=== PATIENT | male | born 1940 | race Two or more races ===

== ENCOUNTER 2020-08-12 08:31 | Inpatient (IN) | payer MEDICARE, BC ==
[2020-08-12] VITALS (15 sets, daily range): BP systolic 112–155; BP diastolic 55–84
[~2020-08-12] VITALS: Ht 165.1 cm; Wt 83.9 kg
[~2020-08-12 08:31] MED LIST: ASPIRIN81 MG ORAL; ATENOLOL50 MG ORAL; FLOMAX0.4 MG ORAL; LISINOPRIL10 MG ORAL; SIMVASTATIN20 MG ORAL
[2020-08-12] MEDS ORDERED: ceFAZolin sod 1 GM in NS 55 ML IVPB ONE (09:00)
--- NOTE | 2020-08-12 10:53 | Anethesia Preoperative Eval ---
Anesthesia Pre-op PMH/ROS General Date of Evaluation: Aug 12, 2020 Time of Evaluation: 11:35 Anesthesiologist: Jeff ASA Score: ASA 3 Mallampati Score Class I : Soft palate, uvula, fauces, pillars visible Class II: Soft palate, uvula, fauces visible Class III: Soft palate, base of uvula visible Class IV: Only hard plate visible Mallampati Classification: Class III Surgeon: Killian Diagnosis: Bladder Tumor Surgical Procedure: TURBT, TURP Anesthesia History: none Family History: no anesthesia problems Allergies: Coded Allergies: No Known Allergies (Unverified , 08/11/20) Medications: see eMAR Patient NPO?: Yes Past Medical History Cardiovascular: Reports: HTN, other - HL Gastrointestinal/Genitourinary: Reports: other - Ptostate CA, Bladder Tumor Neurologic/Psychiatric: Reports: depression/anxiety Musculoskeletal/Integumentary: Reports: other - Gout Anesthesia Pre-op Phys. Exam Physician Exam Last Vital Signs Date Time Temp Pulse Resp B/P (MAP) Pulse Ox O2 Delivery O2 Flow Rate FiO2 08/12/20 10:09 Room Air 08/12/20 10:04 97.9 80 18 123/84 (97) 99 Constitutional: NAD Neurologic: CN 2-12 intact Cardiovascular: RRR Respiratory: CTA Gastrointestinal: S/NT/ND Airway Exam Mallampati Score: Class III MO: limited ROM: limited Teeth: missing Anesthesia Pre-op A/P Risk Assessment & Plan Assessment: ASA 3 Plan: GA, SED, GlideScope Status Change Before Surgery: No Pre-Antibiotics Dru Gram Ancef IV Given Within 1 Hr of Incision: Yes Time Given: 11:51 Kei Aguilar MD Aug 12, 2020 10:53
--- NOTE | 2020-08-12 10:53 | Immediate Post-Op Evaluation ---
Immediate Post-Op Evalulation Immediate Post-Op Evalulation Procedure: TURBT, TURP Date of Evaluation: Aug 12, 2020 Time of Evaluation: 13:32 IV Fluids: 1500 LR Blood Products: 0 Estimated Blood Loss: 25 Urinary Output: 0 Blood Pressure Systolic: 162 Blood Pressure Diastolic: 87 Pulse Rate: 86 Respiratory Rate: 16 O2 Sat by Pulse Oximetry: 98 Temperature (Fahrenheit): 98.5 Pain Score (1-10): 2 Nausea: No Vomiting: No Complications 0 Patient Status: awake, reacts, patent, extubated, none Hydration Status: adequate Dru Gram Ancef IV Given Within 1 Hr of Incision: Yes Time Given: 11:51 Kei Aguilar MD Aug 12, 2020 10:53
[2020-08-12] MEDS ORDERED: LR 1000ml 1,000 ML IVLG SCH (11:00)
[2020-08-12] MEDS ORDERED: Hydromorphone 0.5mg/0.5ml inj IVP PRN (11:00)
[2020-08-12] MEDS ORDERED: LORazepam Inj 2mg/ml 1ml IV PRN (11:00)
[2020-08-12] MEDS ORDERED: oxyCODONE HCL/Acetaminophen 5/325mg ORAL PRN (11:00)
[2020-08-12] MEDS ORDERED: HYDROcodone/Acetamin 7.5/325 tab ORAL PRN (11:00)
[2020-08-12] MEDS ORDERED: HYDROcodone/Acetamin 5/325 tab ORAL PRN ×4 (11:00→13:15)
[2020-08-12] MEDS ORDERED: Acetaminophen (Non formulary) 100 ML IV ONE (11:00)
[2020-08-12] MEDS ORDERED: Midazolam 2mg/2ml Inj IVP PRN (11:00)
[2020-08-12] MEDS ORDERED: Metoclopramide 10mg/2ml Inj IVP PRN (11:00)
[2020-08-12] MEDS ORDERED: Ketorolac 30mg Inj IV PRN ×2 (11:00)
[2020-08-12] MEDS ORDERED: fentaNYL 100 mcg/2 mL IV PRN (11:00)
[2020-08-12] MEDS ORDERED: DiphenhydrAMINE 50mg/ml Inj IVP PRN (11:00)
[2020-08-12] MEDS ORDERED: Labetalol 5mg/ml 20ml vial IV PRN (11:00)
[2020-08-12] MEDS ORDERED: Meperidine 25mg/1ml Inj (FOR RIGORS ONLY) IV PRN (11:00)
[2020-08-12] MEDS ORDERED: Atropine Sulfate 0.4mg/ml inj IVP PRN (11:00)
--- NOTE | 2020-08-12 11:01 | 48 Hour Post Anesthesia Eval ---
Post Anesthesia Evaluation Procedure: TURBT, TURP Date of Evaluation: Aug 12, 2020 Time of Evaluation: 15:43 Blood Pressure Systolic: 156 0: 79 Pulse Rate: 82 Respiratory Rate: 18 Temperature (Fahrenheit): 98.6 O2 Sat by Pulse Oximetry: 99 Airway: patent Nausea: No Vomiting: No Pain Intensity: 2 Hydration Status: adequate Cardiopulmonary Status: Stable Mental Status/LOC: patient returned to baseline Follow-up Care/Observations: 0 Post-Anesthesia Complications: 0 Follow-up care needed: ready to discharge Kei Aguilar MD Aug 12, 2020 11:01
[2020-08-12] MEDS ORDERED: Iothalamate Meglumine 60% 50ML INJ ONE (11:27)
[2020-08-12] MEDS ORDERED: Lidocaine 1% MPF 10mg/ml 5ml ONE (11:30)
[2020-08-12] MEDS ORDERED: Glycopyrrolate 0.2mg/ml 1ml Vial ONE (11:30)
[2020-08-12] MEDS ORDERED: Neostigmine 1mg/ml 10ml Inj ONE (11:30)
[2020-08-12] MEDS ORDERED: fentaNYL 100 mcg/2 mL IV ONE (11:30)
[2020-08-12] MEDS ORDERED: LR 1000ml ONE (11:30)
[2020-08-12] MEDS ORDERED: Midazolam 2mg/2ml Inj ONE (11:30)
[2020-08-12] MEDS ORDERED: Sterile Water Irrig 1000ml IRRIG ONE (11:30)
[2020-08-12] MEDS ORDERED: Rocuronium Bromide 50mg/5ml Inj IV ONE (11:30)
[2020-08-12] MEDS ORDERED: NS Irrig 3000ml IRRIG ONE ×6 (12:08→12:58)
--- NOTE | 2020-08-12 13:12 | Pre-Procedure Note/Attestation ---
Pre-Procedure Note/Attestation Complete Prior to Procedure Planned Procedure: not applicable Procedure Narrative: DVIU TURP SP tube placement Indications for Procedure Pre-Operative Diagnosis: urethral stricture CAP Attestation I attest that I discussed the nature of the procedure; its benefits; risks and complications; and alternatives (and the risks and benefits of such alternatives), prior to the procedure, with the patient (or the patient's legal desk representative). I attest that, if there was a reasonable possibility of needing a blood transfusion, the patient (or the patient's legal desk representative) was given the [facility] standardized written summary, pursuant to the [place] Blood Safety Act ([place] Health and Safety Code # 1645, as amended). I attest that I re-evaluated the patient just prior to the surgery and that there has been no change in the patient's H&P, except as documented below: Anival Daily MD Aug 12, 2020 13:12
--- NOTE | 2020-08-12 13:13 | Brief Operative Note ---
Immediate Post Operative Note Operative Note Pre-op Diagnosis: urethral stricture CAP Procedure: DVIU TURP SP Post-op Diagnosis: same Post-op Diagnosis: same as pre-op Surgeon: Adriel Daily Anesthesia: general Specimen: yes Complications: none Condition: stable Fluids: 500 Estimated Blood Loss: minimal Implant(s) used?: No Anival Daily MD Aug 12, 2020 13:13
[2020-08-12] MEDS ORDERED: D5 1/2NS 1,000 ML IV SCH ×2 (13:15)
[2020-08-12] MEDS ORDERED: Tylenol #3 tab (300mg/30mg) ORAL PRN ×3 (13:15)
[2020-08-12] MEDS ORDERED: HYDROmorphone 1mg/ml Carpuject SUBQ PRN ×3 (13:15)
--- NOTE | 2020-08-12 15:00 | NUR ---
NURSE NOTES: Handoff received from Anabel CAMACHO. Patient is awake and alert, no signs of acute distress noted, breathing is even and unlabored on 3L NC. Fuentes catheter is patent and draining to gravity, Right hand 20 g is intact and running TKO. Bed is low and locked, side rails up x2, call light is within reach.
[2020-08-12] MEDS: D5 1/2NS 1,000 ML IV SCH (16:09)
--- NOTE | 2020-08-12 19:30 | NUR ---
NURSE HAND-OFF: Important Events on Shift:[arrival to 3E] Patient Status: stable Diet: regular Pending Orders: Pending Results/Labs: Pending MD notification: Latest Vital Signs: Temperature 97.9 , Pulse 64 , B/P 147 /68 , Respiratory Rate 18 , O2 SAT 99 , Nasal Cannula, O2 Flow Rate 3 . Vital Sign Comment: stable Latest Mohan Fall Score: 35 Fall Risk: Medium Risk Safety Measures: Call light , Bed Alarm , Side Rails Side Rails x1, Bed position Low and Locked. Fall Precautions: Report given to Skyler CAMACHO.
--- NOTE | 2020-08-12 19:30 | NUR ---
NURSE NOTES: received pt and report from Gilberto RN, pt alert and oriented x 4 with no acute s/s of distress and no co pain at the moment. farrar noted and draining. IV site clean dry and intact. ice pack placed on surgical site as ordered. plan of care discussed.
--- NOTE | 2020-08-12 20:30 | NUR ---
NURSE NOTES: vital signs stable, no acute distress noted, no pain. pt asleep at the moment.
[2020-08-13] VITALS: BP 121/59
--- NOTE | 2020-08-13 00:22 | NUR ---
NURSE NOTES: vital signs stable, pt watching tv in bed. new ice pack applied to groin area as ordered. no acute distress and no co pain.
[2020-08-13] MEDS: D5 1/2NS 1,000 ML IV SCH ×3 (02:06→23:33)
[2020-08-13 03:46] VITALS: BP 130/56
--- NOTE | 2020-08-13 03:57 | NUR ---
NURSE NOTES: pt lying in bed watching tv. no acute distress noted and no co of pain at the moment. vital signs are stable. new ice pack applied to perineal area.
[2020-08-13 06:54] LABS: HEMATOCRIT 44.5 % (42.0-52.0); HEMOGLOBIN 14.5 G/DL (14.2-18.0); MEAN CORPUSCULAR VOLUME 94 FL (80-99); PLATELET COUNT 183 K/UL (150-450); RED BLOOD COUNT 4.73 M/UL (4.70-6.10); RED CELL DISTRIBUTION WIDTH 13.3 % (11.6-14.8); WHITE BLOOD COUNT 12.4 K/UL (4.8-10.8)
[2020-08-13 06:59] LABS: ALBUMIN 3.1 G/DL (3.4-5.0); ALBUMIN/GLOBULIN RATIO 0.9 (1.0-2.7); BILIRUBIN,TOTAL 0.5 MG/DL (0.2-1.0); CREATININE 1.3 MG/DL (0.55-1.30)
--- NOTE | 2020-08-13 07:30 | NUR ---
NURSE NOTES: Received report from Skyler CAMACHO. Patient is awake and oriented, in no distress, denies pain. SCD's in place. IV intact, patent, running IVF per order. F/c draining to gravity with clear, yellow urine noted, small amount of blood noted around urethra, blood cleaned and farrar care provided. Patient updated on plan of care. Side rails upx2, bed low and locked, call light within reach.
--- NOTE | 2020-08-13 07:31 | NUR ---
NURSE HAND-OFF: Important Events on Shift:Pain management, post op assessments Patient Status: stable Diet: regular Pending Orders: NA Pending Results/Labs:NA Pending MD notification:NA Latest Vital Signs: Temperature 97.7 , Pulse 60 , B/P 130 /56 , Respiratory Rate 16 , O2 SAT 97 , Nasal Cannula, O2 Flow Rate 3 . Vital Sign Comment: stable through the shift Latest Mohan Fall Score: 35 Fall Risk: Medium Risk Safety Measures: Call light Within Reach, Bed Alarm , Side Rails Side Rails x2, Bed position Low and Locked. Fall Precautions: Patient Fall Education Report given to JANICE Ryan.
[2020-08-13 08:00] VITALS: BP 116/57
[2020-08-13] MEDS ORDERED: Aspirin Baby 81mg ORAL SCH (09:00)
[2020-08-13] MEDS: Tamsulosin 0.4mg cap ORAL SCH (09:10)
[2020-08-13] MEDS: Lisinopril 20mg tab ORAL SCH (09:11)
[2020-08-13 12:00] VITALS: BP 132/49
--- NOTE | 2020-08-13 12:40 | NUR ---
NURSE NOTES: Patient complained of difficulty having BM. Notified Dr. Akbar, orders received and entered.
[2020-08-13] MEDS ORDERED: Milk of Magnesia 30ml Ud ORAL PRN (12:45)
--- NOTE | 2020-08-13 12:56 | Consultation ---
History of Present Illness General Date patient seen: Aug 13, 2020 Present Illness HPI 79-year-old Farsi speaking male status post TURP surgery called to evaluate and assist with postoperative management patient has his age comorbidities and condition will dictate. Patient seen patient by chart reviewed complaining abdominal discomfort constipation. Allergies: Coded Allergies: No Known Allergies (Unverified , 08/11/20) COVID-19 Screening Contact w/high risk pt: No Experienced COVID-19 symptoms?: No Medication History Scheduled Atenolol* (Tenormin*), 50 MG ORAL DAILY, (Reported) Lisinopril* (Lisinopril*), 20 MG ORAL DAILY, (Reported) Simvastatin (Zocor), 20 MG ORAL BEDTIME, (Reported) Tamsulosin HCl (Flomax), 0.4 MG ORAL DAILY, (Reported) Discontinued Medications Aspirin* (Aspirin*), 81 MG ORAL DAILY, (Reported) Discontinued Reason: MD discontinued med Patient History History Provided By: Patient, Medical Record, PMD Healthcare decision maker N Resuscitation status Advanced Directive on File Past Medical/Surgical History Past Medical/Surgical History: (1) TRANSURETRHAL RESECTION OF BLADDER TUMOR Review of Systems Review of Symptoms General ROS: no weight loss or fever Psychological ROS: no depression or mood changes, no memory loss Ophthalmic ROS: no visual changes or eye irritation ENT ROS: no nasal congestion, hearing loss, dizziness Allergy and Immunology ROS: no allergic symptoms or urticaria Hematological and Lymphatic ROS: no swollen glands, unusual bleeding or bruising Endocrine ROS: no polyuria, polydipsia, weight changes, temperature intolerance Respiratory ROS: no cough, shortness of breath, or wheezing Cardiovascular ROS: no chest pain or dyspnea on exertion Gastrointestinal ROS: denies abdominal pain, bright red blood in stool. Musculoskeletal ROS: no myalgias or arthralgias Neurological ROS: no TIA or stroke symptoms Dermatological ROS: no new or changing skin lesions, rashes or pruritis Physical Exam Physical Exam General appearance: alert, cooperative, no distress, appears stated age Head: Normocephalic, without obvious abnormality, atraumatic Eyes: conjunctivae/corneas clear. PERRL, EOM's intact. Fundi benign Throat: Lips, mucosa, and tongue normal. Teeth and gums normal Neck: supple, symmetrical, trachea midline, no adenopathy, thyroid: not enlarged, symmetric, no tenderness/mass/nodules, no carotid bruit and no JVD Lungs: clear to auscultation bilaterally Heart: regular rate and rhythm, S1, S2 normal, no murmur, click, rub or gallop Abdomen: soft, non-tender. Bowel sounds normal. No masses, no organomegaly Extremities: extremities normal, atraumatic, no cyanosis or edema Pulses: 2+ and symmetric Skin: Skin color, texture, turgor normal. No rashes or lesions Neurologic: Grossly normal Last 24 Hour Vital Signs Date Time Temp Pulse Resp B/P (MAP) Pulse Ox O2 Delivery O2 Flow Rate FiO2 08/13/20 09:11 116/57 08/13/20 09:11 82 116/57 08/13/20 03:46 97.7 60 16 130/56 (80) 97 08/13/20 00:00 97.8 61 15 121/59 (79) 97 08/12/20 21:00 Room Air 08/12/20 20:00 97.4 71 16 112/55 (74) 98 08/12/20 16:00 97.9 64 18 147/68 (94) 99 08/12/20 15:30 98.2 77 18 146/61 (89) 100 08/12/20 15:00 98.1 71 18 140/57 (84) 100 08/12/20 14:50 98.0 60 23 147/68 99 Nasal Cannula 3 08/12/20 14:45 62 15 140/64 100 Nasal Cannula 3 08/12/20 14:30 65 14 138/68 99 Nasal Cannula 3 08/12/20 14:19 68 15 138/66 100 08/12/20 14:15 69 16 133/61 99 Nasal Cannula 3 08/12/20 14:00 62 19 131/63 99 Nasal Cannula 3 08/12/20 13:49 65 19 147/68 99 08/12/20 13:45 64 11 140/61 99 Nasal Cannula 3 08/12/20 13:35 74 22 136/65 99 Nasal Cannula 3 08/12/20 13:25 77 15 138/66 98 Simple Mask 6 08/12/20 13:20 78 18 155/74 98 Simple Mask 6 08/12/20 13:17 82 18 99 08/12/20 13:16 86 16 98 08/12/20 13:15 98.5 91 13 153/79 97 Simple Mask 6 Intake and Output 08/12/20 08/13/20 19:00 07:00 Intake Total 2300 ml 1250 ml Output Total 775 ml 550 ml Balance 1525 ml 700 ml Intake Oral 300 ml 250 ml IV Total 2000 ml 1000 ml Output Urine Total 750 ml 550 ml Estimated Blood Loss 25 ml # Voids 1 Laboratory Tests Test 08/13/20 06:00 White Blood Count 12.4 K/UL (4.8-10.8) H Red Blood Count 4.73 M/UL (4.70-6.10) Hemoglobin 14.5 G/DL (14.2-18.0) Hematocrit 44.5 % (42.0-52.0) Mean Corpuscular Volume 94 FL (80-99) Mean Corpuscular Hemoglobin 30.5 PG (27.0-31.0) Mean Corpuscular Hemoglobin Concent 32.5 G/DL (32.0-36.0) Red Cell Distribution Width 13.3 % (11.6-14.8) Platelet Count 183 K/UL (150-450) Mean Platelet Volume 8.4 FL (6.5-10.1) Neutrophils (%) (Auto) % (45.0-75.0) Lymphocytes (%) (Auto) % (20.0-45.0) Monocytes (%) (Auto) % (1.0-10.0) Eosinophils (%) (Auto) % (0.0-3.0) Basophils (%) (Auto) % (0.0-2.0) Differential Total Cells Counted 100 Neutrophils % (Manual) 82 % (45-75) H Lymphocytes % (Manual) 8 % (20-45) L Monocytes % (Manual) 10 % (1-10) Eosinophils % (Manual) 0 % (0-3) Basophils % (Manual) 0 % (0-2) Band Neutrophils 0 % (0-8) Platelet Estimate Adequate Platelet Morphology Normal Red Blood Cell Morphology Normal Sodium Level 139 MMOL/L (136-145) Potassium Level 5.0 MMOL/L (3.5-5.1) Chloride Level 107 MMOL/L (98-107) Carbon Dioxide Level 24 MMOL/L (21-32) Anion Gap 8 mmol/L (5-15) Blood Urea Nitrogen 19 mg/dL (7-18) H Creatinine 1.3 MG/DL (0.55-1.30) Estimat Glomerular Filtration Rate 53.1 mL/min (>60) Glucose Level 131 MG/DL (74-106) H Calcium Level 9.0 MG/DL (8.5-10.1) Total Bilirubin 0.5 MG/DL (0.2-1.0) Aspartate Amino Transf (AST/SGOT) 21 U/L (15-37) Alanine Aminotransferase (ALT/SGPT) 19 U/L (12-78) Alkaline Phosphatase 58 U/L (46-116) Total Protein 6.6 G/DL (6.4-8.2) Albumin 3.1 G/DL (3.4-5.0) L Globulin 3.5 g/dL Albumin/Globulin Ratio 0.9 (1.0-2.7) L Height (Feet): 5 Height (Inches): 5.00 Weight (Pounds): 185 Medications Current Medications Medications (Trade) Dose Ordered Sig/Hiwot Route PRN Reason Start Time Stop Time Status Last Admin Dose Admin Acetaminophen/ Codeine Phosphate (Tylenol #3) 1 tab Q4H PRN ORAL Moderate Pain (Pain Scale 4-6) 08/12/20 13:15 08/19/20 13:14 Acetaminophen/ Hydrocodone Bitart ([place] 5/325) 1 tab Q4H PRN ORAL Moderate Pain (Pain Scale 4-6) 08/12/20 13:15 08/19/20 13:14 Atenolol (Tenormin) 50 mg DAILY ORAL 08/13/20 09:00 09/12/20 08:59 08/13/20 09:11 Atorvastatin Calcium (Lipitor) 10 mg BEDTIME ORAL 08/12/20 21:00 11/10/20 20:59 08/12/20 20:15 Dextrose/Sodium Chloride 1,000 ml @ 100 mls/hr Q10H IV 08/12/20 18:00 09/11/20 17:59 08/13/20 02:06 Docusate Sodium (Colace) 100 mg TWICE A DAY ORAL 08/13/20 18:00 09/12/20 17:59 Hydromorphone HCl (Dilaudid) 1 mg Q1H PRN SUBQ Severe Pain (Pain Scale 7-10) 08/12/20 13:15 08/19/20 13:14 08/12/20 21:18 Lisinopril (PriniviL) 20 mg DAILY ORAL 08/13/20 09:00 09/12/20 08:59 08/13/20 09:11 Magnesium Hydroxide (Mom) 30 ml DAILYPRN PRN ORAL Constipation 08/13/20 12:45 09/12/20 12:44 Tamsulosin HCl (Flomax) 0.4 mg DAILY ORAL 08/13/20 09:00 09/12/20 08:59 08/13/20 09:10 Assessment/Plan Problem List: (1) TRANSURETRHAL RESECTION OF BLADDER TUMOR Assessment & Plan: Patient is doing well overall postoperatively. The urine is clearing up very well. He is complaining of abdominal discomfort with little distention likely related to constipation. Plan for diet as tolerated. Bowel regimen initiated. Rx written for potential plan for DC tomorrow. Needs to work with physical therapy to ensure safe for discharge given age and condition. Glasses checked teeth checked oral airway checked incentive spirometry initiated. Skin protection identified discussion had with patient in [facility] regards to this care plan patient expressed understanding. Toro Akbar Aug 13, 2020 12:56
--- NOTE | 2020-08-13 13:34 | NUR ---
P.T Note: P.T evaluation completed. Pt is independent in all areas of ADL/self functional mobilities and gait/ambulation. Current functional status does not warrant skilled P.T service at this time. Encouraged patient OOB activities i.e ambulation within the room and hallways with nursing supervision and to assist with I.V pole .DC P.T services. Thank you for this referral. Addendum: 08/13/20 at 1335 by JAZMIN DURAN PT Amended: Links added.
--- NOTE | 2020-08-13 15:31 | NUR ---
CASE MANAGEMENT:REVIEW 79 YR OLD MALE HERE FOR ELECTIVE SURGERY SI: URETHRAL STRICTURE CAP 97.9 80 18 123/84 99% ON RA IS: TO SURGERY FOR DVIU TURP SP : TO MED/SURG 3 EAST POST OP 08/13/20 SI: POD #1.....S/P TURP 97.4 71 16 112/55 98% ON RA IS: IVF@100/HR FLOMAX PO QD LISINOPRIL PO QD ATENOLOL PO QD LIPITOR PO QHS : MED/SURG STATUS 3 EAST PLAN: START REGULAR DIET PT EVAL
[2020-08-13 16:00] VITALS: BP 138/57
[2020-08-13] MEDS: Docusate 100mg cap ORAL SCH (17:38)
--- NOTE | 2020-08-13 19:05 | NUR ---
NURSE NOTES: Received report from JANICE Ryan. Patient is A&Ox4, call light within reach, bed in lowest position, side rails up x2. Pt is able to ambulate, IVF infusing well. Will continue to monitor.
--- NOTE | 2020-08-13 19:14 | NUR ---
NURSE HAND-OFF: Important Events on Shift: Ambulated, f/f care, patient requested MOM tonjunior (endorsed to shift stacker). Patient Status: stable Diet: Reg(kosher) Pending Orders: n/a Pending Results/Labs: n/a Pending MD notification: n/a Latest Vital Signs: Temperature 97.3 , Pulse 62 , B/P 138 /57 , Respiratory Rate 18 , O2 SAT 97 Vital Sign Comment: VS stable Latest Mohan Fall Score: 35 Fall Risk: Medium Risk Safety Measures: Call light Within Reach, Bed Alarm , Side Rails Side Rails x2, Bed position Low and Locked. Fall Precautions: Patient Fall Education Report given to Vinay CAMACHO.
[2020-08-13 20:00] VITALS: BP 138/58
[2020-08-14] VITALS: BP 130/53
[2020-08-14 04:00] VITALS: BP 149/63
[2020-08-14 06:39] LABS: BASOPHILS % (AUTO) 0.7 % (0.0-2.0); EOSINOPHILS % (AUTO) 3.6 % (0.0-3.0); HEMATOCRIT 42.2 % (42.0-52.0); HEMOGLOBIN 13.6 G/DL (14.2-18.0); LYMPHOCYTES % (AUTO) 16.1 % (20.0-45.0); MEAN CORPUSCULAR VOLUME 93 FL (80-99); MONOCYTES % (AUTO) 8.2 % (1.0-10.0); NEUTROPHILS % (AUTO) 71.4 % (45.0-75.0); PLATELET COUNT 173 K/UL (150-450); RED BLOOD COUNT 4.53 M/UL (4.70-6.10); RED CELL DISTRIBUTION WIDTH 13.1 % (11.6-14.8); WHITE BLOOD COUNT 9.4 K/UL (4.8-10.8)
[2020-08-14 06:59] LABS: ALANINE AMINOTRANSFERASE 19 U/L (12-78); ALBUMIN 2.9 G/DL (3.4-5.0); ALBUMIN/GLOBULIN RATIO 0.9 (1.0-2.7); ALKALINE PHOSPHATASE 58 U/L (46-116); ANION GAP 7 mmol/L (5-15); ASPARTATE AMINO TRANSFERASE 21 U/L (15-37); BILIRUBIN,TOTAL 0.6 MG/DL (0.2-1.0); BLOOD UREA NITROGEN 16 mg/dL (7-18); CALCIUM 8.8 MG/DL (8.5-10.1); CARBON DIOXIDE 25 MMOL/L (21-32); CHLORIDE 107 MMOL/L (98-107); CREATININE 1.1 MG/DL (0.55-1.30); POTASSIUM 4.1 MMOL/L (3.5-5.1); SODIUM 138 MMOL/L (136-145)
--- NOTE | 2020-08-14 07:10 | NUR ---
NURSE HAND-OFF: Important Events on Shift: Pt attempted to have a BM 1x with no success, no pain, new IV in left FA Patient Status: calm Diet: regular Pending Orders: Pending Results/Labs: Pending MD notification: Latest Vital Signs: Temperature 97.7 , Pulse 76 , B/P 149 /63 , Respiratory Rate 18 , O2 SAT 98 , Nasal Cannula, O2 Flow Rate 3 . Vital Sign Comment: VSS Latest Mohan Fall Score: 35 Fall Risk: Medium Risk Safety Measures: Call light Within Reach, Bed Alarm , Side Rails Side Rails x2, Bed position Low and Locked. Fall Precautions: Yellow Socks Door Sign Patient Fall Education Report given to JANICE Booker.
[2020-08-14 08:00] VITALS: BP 129/57
[2020-08-14] MEDS: Docusate 100mg cap ORAL SCH (09:03)
[2020-08-14] MEDS: Lisinopril 20mg tab ORAL SCH (09:03)
[2020-08-14] MEDS: Tamsulosin 0.4mg cap ORAL SCH (09:04)
--- NOTE | 2020-08-14 09:59 | NUR ---
NURSE NOTES: RECIEVED IN BED ALERT AND ORIENTED NO S/S OF DISTRESS NOTED .CALL LIGHT WITHIN REACH NEEDS ATTENDED.WILL CONTINUE W/ PLAN OF CARE.
[2020-08-14] MEDS: D5 1/2NS 1,000 ML IV SCH (11:31)
[2020-08-14 12:30] VITALS: BP 136/52
--- NOTE | 2020-08-14 12:30 | NUR ---
NURSE NOTES: Received report from Joyce RN. Patient is awake and oriented, in no distress, ambulating steadily with cane, f/c draining to gravity. Updated on plan of care.
--- NOTE | 2020-08-14 12:30 | NUR ---
HAND-OFF: Report given to JOSE CAMACHO.
[2020-08-14 13:04] VITALS: BP 136/52
--- NOTE | 2020-08-14 13:11 | NUR ---
CASE MANAGEMENT:REVIEW SI;URETHRAL STRICTURE ~ POD #2 TURP 98.0 76 18 149/63 97% ON RA ALB- 2.9 IS;FLOMAX PO QD ATENOLOL PO QD IVF D5NS @ 100 ML/HR LISINOPRIL PO QD MED SURG STATUS DCP;FROM HOME
[2020-08-14] MEDS ORDERED: Milk of Magnesia 30ml Ud ORAL SCH (16:00)
[2020-08-14] MEDS ORDERED: D5 1/2NS 1000ml IV ONE (16:14)
--- NOTE | 2020-08-14 16:14 | NUR ---
NURSE NOTES: Patient discharged without distress, patient provided with discharge education, seen by Dr. Layton prior to discharge. Patient verbalized understanding of discharge education. Leg bag attached, patient provided with large urine drainage bag for night time use. Patient provided with home health information, verified with Dr. Daily's office patient has [facility], number provided. All belongings sent with patient. Patient ambulated off unit to private vehicle, escorted by patient's son Vinay.
--- NOTE | 2020-08-14 16:53 | Surgery Progress Note ---
Surgery Progress Note Subjective Symptoms: improved, pain absent, tolerating diet, voiding well, passing flatus Objective Last 24 Hour Vital Signs Date Time Temp Pulse Resp B/P (MAP) Pulse Ox O2 Delivery O2 Flow Rate FiO2 08/14/20 13:04 97.8 62 18 136/52 (80) 97 08/14/20 12:30 97.8 62 18 136/52 (80) 97 08/14/20 09:04 62 129/57 08/14/20 09:03 129/57 08/14/20 09:00 Room Air 08/14/20 08:00 98.0 62 18 129/57 (81) 97 08/14/20 04:00 97.7 76 18 149/63 (91) 98 08/14/20 00:00 97.9 61 16 130/53 (78) 98 08/13/20 21:00 Room Air 08/13/20 20:00 98.2 64 16 138/58 (84) 98 I&O Intake and Output 08/13/20 08/14/20 19:00 07:00 Intake Total 1700 ml 2500 ml Output Total 1400 ml 2600 ml Balance 300 ml -100 ml Intake Oral 700 ml 1400 ml IV Total 1000 ml 1100 ml Output Urine Total 1400 ml 2600 ml Cardiovascular: RSR Respiratory: clear Abdomen: soft, non-tender, present bowel sounds, non-distended Extremities: no edema, no tenderness, no cyanosis Laboratory Tests Test 08/14/20 06:10 White Blood Count 9.4 K/UL (4.8-10.8) Red Blood Count 4.53 M/UL (4.70-6.10) L Hemoglobin 13.6 G/DL (14.2-18.0) L Hematocrit 42.2 % (42.0-52.0) Mean Corpuscular Volume 93 FL (80-99) Mean Corpuscular Hemoglobin 30.1 PG (27.0-31.0) Mean Corpuscular Hemoglobin Concent 32.2 G/DL (32.0-36.0) Red Cell Distribution Width 13.1 % (11.6-14.8) Platelet Count 173 K/UL (150-450) Mean Platelet Volume 8.1 FL (6.5-10.1) Neutrophils (%) (Auto) 71.4 % (45.0-75.0) Lymphocytes (%) (Auto) 16.1 % (20.0-45.0) L Monocytes (%) (Auto) 8.2 % (1.0-10.0) Eosinophils (%) (Auto) 3.6 % (0.0-3.0) H Basophils (%) (Auto) 0.7 % (0.0-2.0) Sodium Level 138 MMOL/L (136-145) Potassium Level 4.1 MMOL/L (3.5-5.1) Chloride Level 107 MMOL/L (98-107) Carbon Dioxide Level 25 MMOL/L (21-32) Anion Gap 7 mmol/L (5-15) Blood Urea Nitrogen 16 mg/dL (7-18) Creatinine 1.1 MG/DL (0.55-1.30) Estimat Glomerular Filtration Rate > 60 mL/min (>60) Glucose Level 110 MG/DL (74-106) H Calcium Level 8.8 MG/DL (8.5-10.1) Total Bilirubin 0.6 MG/DL (0.2-1.0) Aspartate Amino Transf (AST/SGOT) 21 U/L (15-37) Alanine Aminotransferase (ALT/SGPT) 19 U/L (12-78) Alkaline Phosphatase 58 U/L (46-116) Total Protein 6.1 G/DL (6.4-8.2) L Albumin 2.9 G/DL (3.4-5.0) L Globulin 3.2 g/dL Albumin/Globulin Ratio 0.9 (1.0-2.7) L Plan Problems: (1) TRANSURETRHAL RESECTION OF BLADDER TUMOR Assessment & Plan: walking well with pt comfortable d/c plan today leg bag meds reviewed rx written instructions given dc planning done Toro Akbar Aug 14, 2020 16:53
--- NOTE | 2020-08-16 13:14 | Discharge Summary ---
Discharge Summary Discharge Summary _ Date of admission: 08/12/2020 Date of discharge: 08/14/[address] Daily History of Present Illness and Brief Hospital Course Mr. Otero is an 79-year-old male with past medical history of prostate cancer, CAD, hypertension, depression, kidney stone, GERD, hyperlipidemia, and diverticulosis, who presented to the hospital for a scheduled transurethral resection of bladder tumor, and transurethral resection of the prostate on 08/13/2020. Patient did well overall postoperatively. Urine was clearing up very well. He was complaining of abdominal discomfort with little distention, likely related to constipation. Patient's condition progressively improved, began to tolerate diet, void well, and passed flatus. Patient was also evaluated by physical therapist who found the patient to be independent in all areas of ADL/self functional mobilities and gait/ambulation. Given his stable medical condition post transurethral resection of bladder tumor, he was discharged home on 08/14/2020. Consultants: Surgery Dr. Akbar Discharge Condition Stable Discharge Activity Advance as tolerated Final diagnoses Prostate cancer s/p TURP s/p TURBT History of hyperlipidemia History of hypertension, History of depression History of GERD I have been assigned to dictate discharge summary for this account. I was not involved in the patient's management Carlitos Rangel Aug 16, 2020 13:14
--- NOTE | 2020-08-17 17:14 | Operative Note - Dictated ---
DATE OF OPERATION: 08/14/2020 PREOPERATIVE DIAGNOSES: Prostate cancer, urethral obstruction, bladder neck contracture, urinary retention. POSTOPERATIVE DIAGNOSES: Prostate cancer, urethral obstruction, bladder neck contracture, urinary retention. OPERATIONS: Cystoscopy, direct visual internal urethrotomy, transurethral resection of the prostate and bladder neck, and Fuentes catheter placement. [employer] INSTALLER: Anival Daily M.D. ANESTHESIA: General. FINDINGS: Obstructed urethra and prostate. 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 He had a history of prostate cancer and had radiation therapy 17 years ago. He was treated sequentially with antibiotics. Treatment options were explained to him about the procedure and potential complications such as incontinence due to the resection of the urethral sphincter, which is in the very close proximity to the stricture and the bladder neck contracture. He understands the nature of the procedure and signed the consent. DESCRIPTION OF SURGERY: He was brought to the operating room, placed in the lithotomy position, prepped and draped in standard fashion. Under general anesthesia, cystoscope was introduced. 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 It was diagnosed using direct visual urethroscope and cold knife. Stricture first was sequentially resected to gain access for guidewire. Guidewire was then placed through the stricture into the bladder and the resectoscope was also introduced beyond the stricture to visualize the prostate. Prostate was rock hard like a concrete together with the stricture and felt like going through the metal. Using loop, which was broken twice just to resect this tissue, the necrotic tissue and devitalized tissue were resected and sent for pathologic examination. There was wide opening of the urethra at that point and bladder neck was diagnosed and bleeding was treated with electrocautery and Fuentes catheter. A 22-Tamazight was placed and left indwelling. The patient tolerated the procedure well. No evidence of complications. Anival Daily M.D. DR: GWEN JOB#: [id number] CC:
== END 2020-08-14 16:15 | disposition home or self-care (01) | DRG 710 ==
LOC: SDSOVERFLO 09:15 → 3E 14:34
DX: C61 Malignant neoplasm of prostate (principal); N35.919 Unspecified urethral stricture, male, unspecified site; I25.10 Atherosclerotic heart disease of native coronary artery without angina pectoris; K21.9 Gastro-esophageal reflux disease without esophagitis; E78.5 Hyperlipidemia, unspecified; K57.90 Diverticulosis of intestine, part unspecified, without perforation or abscess without bleeding; I10 Essential (primary) hypertension; F32.9 Major depressive disorder, single episode, unspecified; Z92.3 Personal history of irradiation; M19.90 Unspecified osteoarthritis, unspecified site; N32.0 Bladder-neck obstruction; N39.498 Other specified urinary incontinence; R33.8 Other retention of urine
CPT/HCPCS: 36415; 80053; 85007; 85025; 86850; 86900; 86901; 87081; 94003; 94150; J2250; J2405; J2710; U0002